=== PATIENT | female | born 1985 | race Caucasian/White ===

== ENCOUNTER 2016-07-29 17:56 | Emergency (ER) | payer OTHER ==
[~2016-07-29] VITALS: Ht 165.1 cm; Wt 59.0 kg
[2016-07-29] MEDS ORDERED: ROBAXIN 750 MG750 M1 PO (20:59)
[2016-07-29] MEDS ORDERED: NAPROSYN500 MG PO (20:59)
[2016-07-29 21:12] VITALS: BP 116/68
[2016-08-01] MEDS ORDERED: NORCO 5-325 TA1 EACH PO (21:16)
== END 2016-07-29 21:12 | disposition home or self-care (01) ==
LOC: ER 17:56
DX: S16.1XXA Strain of muscle, fascia and tendon at neck level, initial encounter (principal); R07.9 Chest pain, unspecified; V47.5XXA Car driver injured in collision with fixed or stationary object in traffic accident, initial encounter; Y93.I9 Activity, other involving external motion; Y92.488 Other paved roadways as the place of occurrence of the external cause; Y99.9 Unspecified external cause status

== ENCOUNTER 2017-10-08 11:38 | Emergency (ER) | payer OTHER ==
[~2017-10-08] VITALS: Ht 167.6 cm; Wt 59.0 kg
[~2017-10-08 11:38] MED LIST: NAPROSYN500 MG PO; NORCO 5-325 TA1 EACH PO; ROBAXIN 750 MG750 M1 PO
[2017-10-08 11:45] VITALS: BP 107/70
[2017-10-08] MEDS ORDERED: MOBIC7.5 MG PO (12:43)
== END 2017-10-08 12:44 | disposition home or self-care (01) ==
LOC: ER 11:38
DX: S63.502A Unspecified sprain of left wrist, initial encounter (principal); S83.91XA Sprain of unspecified site of right knee, initial encounter; W10.8XXA Fall (on) (from) other stairs and steps, initial encounter; Y93.89 Activity, other specified; Y92.89 Other specified places as the place of occurrence of the external cause; Y99.8 Other external cause status

== ENCOUNTER 2019-03-08 14:46 | Emergency (ER) | payer OTHER ==
[~2019-03-08] VITALS: Ht 167.6 cm; Wt 59.0 kg
[~2019-03-08 14:46] MED LIST changes: +AMOXICILLIN 50500 M1 PO; +MOBIC7.5 MG PO; +TRAMADOL 50 MG50 MG PO
[2019-03-08 17:12] VITALS: BP 144/101
== END 2019-03-08 17:02 | disposition home or self-care (01) ==
LOC: ER 14:46
DX: J06.9 Acute upper respiratory infection, unspecified (principal); B34.9 Viral infection, unspecified

== ENCOUNTER 2019-05-03 08:14 | Emergency (ER) | payer OTHER ==
[~2019-05-03] VITALS: Ht 165.1 cm; Wt 56.7 kg
[2019-05-03] MEDS ORDERED: ALEVE220 M1 PO (08:19)
[2019-05-03] MEDS ORDERED: PENICILLIN VK500 M1 PO (08:50)
[2019-05-03] MEDS ORDERED: TRAMADOL 50 MG50 MG PO (08:50)
[2019-05-03 09:07] VITALS: BP 128/87
== END 2019-05-03 09:07 | disposition home or self-care (01) ==
LOC: ER 08:14
DX: K04.7 Periapical abscess without sinus (principal); Z90.5 Acquired absence of kidney